=== PATIENT | female | born 1975 | race American Indian/Alaskan Native ===

== ENCOUNTER 2017-12-20 11:47 | Outpatient (CLI) | payer OTHER ==
[2017-12-20] MEDS ORDERED: PROVENTIL IH ONE (12:56)
== END 2017-12-20 11:48 | disposition home or self-care (01) ==
LOC: PF 11:47
PROVIDERS: ATTEND Internal Medicine
DX: F32.9 Major depressive disorder, single episode, unspecified (principal); F43.10 Post-traumatic stress disorder, unspecified; K58.9 Irritable bowel syndrome, unspecified
CPT/HCPCS: 94060; 94640